=== PATIENT | female | born 1960 | race Caucasian/White ===

== ENCOUNTER → 2017-12-11 | Outpatient (CLI) | payer OTHER ==
[~2017-12-11] MED LIST: AMLO-96 PO; ASPI-1471 PO; ATOR10TA65 PO; BENA40TA52 PO; CALC-852 PO; HYDR-2966 PO; HYDR200T42 PO; LEVO25TA61 PO; METO-235 PO; MULT-820 PO; OMEG500C7 PO; SULF500T48 PO; VALS80TA2 PO
--- NOTE | 2017-12-12 13:47 | RADIOLOGY IMAGING REPORT ---
FACILITY: [facility] PATIENT NAME: ASHER KRISHNAN : [id number] MR: [id number] V: [id number] EXAM DATE: [id number] ORDERING PHYSICIAN: GUSTAVO WILL TECHNOLOGIST: Danyelle Darling PROCEDURE:BILATERAL DIGITAL SCREENING MAMMOGRAM WITH CAD ASSISTED INTERPRETATION & 3D TOMOSYNTHESIS COMPARISON:10/25/15, 11/24/12, 08/14/11 INDICATIONS:screening FINDINGS: The breasts have scattered fibroglandular densities. There are no mammographic findings concerning for malignancy. There is no significant interval change. DIAGNOSTIC CATEGORY 1--NEGATIVE. RECOMMENDATIONS: ROUTINE MAMMOGRAM AND CLINICAL EVALUATION IN 1 YR. IMPRESSION: BIRADS 1: Negative Dictated by: Riley Trevino on 12/12/2017 at 8:45 Transcribed by: ODETTE on 12/12/2017 at 10:45 Approved by: Riley Trevino on 12/12/2017 at 13:46 [facility]
== END ==
LOC: MAMO 00:38
PROVIDERS: ATTEND Internal Medicine
DX: Z12.31 Encounter for screening mammogram for malignant neoplasm of breast (principal)
CPT/HCPCS: 77063; 77067